=== PATIENT | male | born 1935 | race Caucasian/White ===

== ENCOUNTER 2024-03-13 13:15 | Emergency (ER) | payer SELFPAY ==
[2024-03-13] MEDS: Acetaminophen 500 MG Tab PO ONE (13:43)
[2024-03-13] MEDS: Bacitracin Oint 28.35 GM Tube TOP STA (14:56)
[2024-03-13] MEDS: Lidocaine 4% 1 each Patch TOP ONE (17:47)
== END 2024-03-13 18:15 | disposition home or self-care (01) ==
LOC: MW.ED 13:15
DX: S32.038A Other fracture of third lumbar vertebra, initial encounter for closed fracture (principal); S22.32XA Fracture of one rib, left side, initial encounter for closed fracture; S09.90XA Unspecified injury of head, initial encounter; S51.012A Laceration without foreign body of left elbow, initial encounter; T23.202A Burn of second degree of left hand, unspecified site, initial encounter; M54.6 Pain in thoracic spine; E04.1 Nontoxic single thyroid nodule; I10 Essential (primary) hypertension; I48.91 Unspecified atrial fibrillation; Z79.899 Other long term (current) drug therapy; Z79.01 Long term (current) use of anticoagulants; W10.8XXA Fall (on) (from) other stairs and steps, initial encounter
CPT/HCPCS: 16020; 70450; 71250; 72125; 72128; 72131; 73070; 99284; A9270; 99283